=== PATIENT | male | born 2000 | race Caucasian/White ===

== ENCOUNTER 2023-11-17 18:56 | Emergency (ER) | payer SELFPAY ==
[2023-11-17 19:04] VITALS: BP 116/71; PULSE 89; TEMP 36.9; O2SAT 97; BMI 23.7
--- NOTE | 2023-11-17 19:34 | ED.GENADUL1 ---
HPI HPI - General Adult General Chief complaint: Upper Respiratory Infection Stated complaint: CONGESTION, CHEST/HEAD Time Seen by Provider: 11/17/23 19:29 Source: patient Mode of arrival: walk-in Limitations: no limitations History of Present Illness HPI narrative: 23-year-old male presents for a history that started today of sore throat and headache. His daughter is also being seen and she developed symptoms last night. The patient has had no vomiting or diarrhea or skin rash. Symptoms are continuous. Related Data Previous Rx's ?Medication ?Instructions ?Recorded ibuprofen 800 mg tablet 800 mg PO Q8H PRN pain #20 tabs 11/17/23 loratadine 5 mg-pseudoephedrine ER 1 tab PO Q12H PRN nasal congestion 11/17/23 120 mg tablet,extended #20 tabs release,12hr (Claritin-D 12 Hour) Allergies Allergy/AdvReac Type Severity Reaction Status Date / Time No Known Drug Allergies Allergy Verified 11/17/23 19:07 Opioid HPI Opioid Management Most Recent Opioid Data: No Data to Display Review of Systems ROS Narrative A ten point review of systems is negative except as noted above. Exam Narrative Exam Narrative: Nurses note and vital signs reviewed and patient is not hypoxic. General: The patient appears well and in no apparent distress. Patient is resting comfortably on cart. Skin: Warm, dry, no pallor noted. There is no rash noted. Head: Normocephalic, atraumatic Eye: Normal conjunctiva, no drainage Ears, Nose, Mouth, and Throat: oral mucosa is moist. Nares patent. No pharyngeal erythema or exudate Cardiovascular: Regular Rate and Rhythm Respiratory: Patient is in no distress, no accessory muscle use, lungs are clear to auscultation, no wheezing, rales or rhonchi Back: non-tender GI: Soft and nontender Musculoskeletal: The patient has no evidence of calf tenderness, no pitting edema, symmetrical pulses noted bilaterally Neurological: Awake and alert Psychiatric: Cooperative Constitutional Vital Signs, click to edit/add: Last Vital Signs Temp 98.4 F 11/17/23 19:04 Pulse 89 11/17/23 19:04 Resp 18 11/17/23 19:04 BP 116/71 11/17/23 19:04 Pulse Ox 97 11/17/23 19:04 O2 Del Method Room Air 11/17/23 19:04 Course Vital Signs Vital signs: Vital Signs Temperature 98.4 F 11/17/23 19:04 Pulse Rate 89 11/17/23 19:04 Respiratory Rate 18 11/17/23 19:04 Blood Pressure 116/71 11/17/23 19:04 Pulse Oximetry 97 11/17/23 19:04 Oxygen Delivery Method Room Air 11/17/23 19:04 Temperature 98.4 F 11/17/23 19:04 Pulse Rate 89 11/17/23 19:04 Respiratory Rate 18 11/17/23 19:04 Blood Pressure 116/71 11/17/23 19:04 Pulse Oximetry 97 11/17/23 19:04 Oxygen Delivery Method Room Air 11/17/23 19:04 Medical Decision Making MDM Narrative Medical decision making narrative: COVID, influenza, and strep test are all negative. My clinical impression is that he has a viral illness and he will be treated symptomatically. Treatment diagnosis and follow-up were discussed with the patient. Differential Diagnosis Differential Diagnosis: Strep throat, COVID, influenza, viral URI Lab Data Lab results reviewed: Yes I reviewed the patient's lab results Labs: Lab Results 11/17/23 Range/Units 19:15 Influenza Type A Ag Negative Influenza Type B Ag Negative SARS-CoV-2 Ag (CV2AG) Negative (NEGATIVE) Streptococcus Screen Negative Discharge Plan Discharge Stand Alone Forms: Portal Instructions Chief Complaint: Upper Respiratory Infection Clinical Impression: Viral URI Patient Disposition: Home, Self-Care Time of Disposition Decision: 20:37 Condition: Good Mode of Transportation: Private Vehicle Prescriptions / Home Meds: New ibuprofen 800 mg tablet 800 mg PO Q8H PRN (Reason: pain) Qty: 20 0RF Claritin-D 12 Hour 5-120 mg tablet extended release 12 hr 1 tab PO Q12H PRN (Reason: nasal congestion) Qty: 20 0RF Print Language: New Zealander Instructions: Upper Respiratory Infection (ED) Referrals: Physician,Non-Staff, MD [Primary Care Provider] - 1 week
[2023-11-17 19:48] LABS: Influenza Virus A Antigen Negative; Influenza Virus B Antigen Negative; Internal Control Within Normal Limits; SARS-CoV-2 Ag NEGATIVE (NEGATIVE); Strep A Antigen Screen Negative
[2023-11-17 20:54] VITALS: BP 118/76; PULSE 82; O2SAT 98
== END 2023-11-17 20:56 | disposition home or self-care (01) ==
PROVIDERS: Emergency Provider Emergency Medicine
DX: J06.9 Acute upper respiratory infection, unspecified (principal); Z20.822 Contact with and (suspected) exposure to COVID-19
CPT/HCPCS: 87070; 87804; 87811; 87880; 99283

== ENCOUNTER 2024-05-27 23:52 | Emergency (ER) | payer OTHER, SELFPAY ==
[2024-05-28 00:01] VITALS: BP 124/86; PULSE 67; TEMP 36.6; O2SAT 97; BMI 23.7
--- NOTE | 2024-05-28 00:06 | ECG_ITS ---
[facility] Test Date: 2024-05-27 Pat Name: MIGNON ANDINO Department: Room: - Gender: Male Works Manager: : 2000 Requested By: [id number] Order Number: [id number] Reading MD: MILAN GREENWOOD Measurements Intervals [place] Rate: 60 P: 9 HI: 126 QRS: 49 QRSD: 86 T: -7 QT: 368 QTc: 368 Interpretive Statements 1100 Sinus rhythm 1102 Sinus arrhythmia 4068 Nonspecific Twave abnormality - borderline Inf wall ischemia 9130 borderline ECG No previous ECG available for comparison Electronically Signed On 05-28-2024 6:50:43 EST by MILAN GREENWOOD
--- NOTE | 2024-05-28 00:07 | ED.CHESTPAI1 ---
HPI - Chest Pain General Chief Complaint: Chest Pain Stated Complaint: chest pain Time Seen by Provider: 05/28/24 00:06 Source: patient Mode of arrival: walk-in Limitations: no limitations History of Present Illness HPI narrative: Presented to the emergency department for evaluation of chest pain. Patient states for at least the last month or 2 he has been having chest pain. Patient states its across the entire chest, left, right, top and bottom. States has been coming and going for the last couple weeks if not a month or 2. States it feels like an aching sensation, moderate in intensity, worse when he is up doing stuff, or lifting things, better when he is sitting down at rest. Patient states he is not having any shortness of breath, nausea, vomiting, diaphoresis. His grandmother had MIs in her 40s, no first-degree relatives. States that he does smoke cigarettes. No other medical problems. Patient states that he went to [facility] on Sunday, they did a chest x-ray and an EKG without blood work. They told him everything was fine and sent him home. Patient states over the last couple days and has still persisted. No other complaints at this time Related Data Home Medications ?Medication ?Instructions ?Recorded ?Confirmed No Known Home Medications 05/28/24 05/28/24 Allergies Allergy/AdvReac Type Severity Reaction Status Date / Time No Known Drug Allergies Allergy Verified 11/17/23 19:07 Review of Systems ROS Narrative Negative unless otherwise stated in the HPI [facility] Social History Little interest or pleasure in doing things: not at all Feeling down, depressed, or hopeless: not at all Exam Narrative Exam Narrative: General: NAD, AAOx3, no distress Eyes: PERRL, EOMI Respiratory: respiratory effort normal, speaks in full sentences, no tripod position, no accessory muscle use. Lungs clear to auscultation without rhonchi, wheezes, rales Cardiac: Regular rate and rhythm, no edema, regular s1/s2, no m/g/r Abdomen: Soft, ND/NT. No evidence of fluid wave. No pulsatile masses on exam, rebound tenderness, Wu sign or pain over Mcburney's point. Constitutional Vital Signs, click to edit/add: Last Vital Signs Temp 97.8 F 05/28/24 00:01 Pulse 67 05/28/24 00:01 Resp 14 05/28/24 00:01 BP 124/86 05/28/24 00:01 Pulse Ox 97 05/28/24 00:01 O2 Del Method Room Air 05/28/24 00:01 Course Vital Signs Vital signs: Vital Signs Temperature 97.8 F 05/28/24 00:01 Pulse Rate 67 05/28/24 00:01 Respiratory Rate 14 05/28/24 00:01 Blood Pressure 124/86 05/28/24 00:01 Pulse Oximetry 97 05/28/24 00:01 Oxygen Delivery Method Room Air 05/28/24 00:01 Temperature 97.8 F 05/28/24 00:01 Pulse Rate 67 05/28/24 00:01 Respiratory Rate 14 05/28/24 00:01 Blood Pressure 124/86 05/28/24 00:01 Pulse Oximetry 97 05/28/24 00:01 Oxygen Delivery Method Room Air 05/28/24 00:01 MDM - Chest Pain MDM Narrative Medical decision making narrative: MDM Patient with history as above presented with chest pain. History obtained from patient. Patient was nontoxic, stable. Ambulatory. Exam as above. EKG reviewed. Labs reviewed. Reviewed external records. Differential diagnosis considered. Overall presentation is consistent with typical chest pain The patient has atypical chest pain as the patient's chest pain is not suggestive of pulmonary embolus, cardiac ischemia, aortic dissection, or other serious etiology. Given the extremely low risk of these diagnoses further testing and evaluation for these possibilities does not appear to be indicated at this time. The patient has been instructed to return if the symptoms worsen or change in any way. Advanced guidance has been given. Vss, pex is benign at this time. Pt to fu with pcp 1-2 days for reeval, rter should sx worsen, persist or become worrysome in any way. Pt expressed understanding and agreement with plan of care at this time. Will fu as planned. Pt stable for discharge. Medical Records Data Attestation: I reviewed the patient's medical records. Lab Data Labs: Lab Results 05/28/24 Range/Units 00:20 WBC 8.0 (4.0-11.0) 10^3/uL RBC 4.52 L (4.70-6.10) 10^6/uL Hgb 13.8 L (14.0-18.0) g/dL Hct 41.9 L (42.0-54.0) % MCV 92.7 (80.0-94.0) fL MCH 30.5 (25.9-34.0) pg MCHC 32.9 (29.9-35.2) g/dL RDW 13.3 (11.0-15.0) % Plt Count 276 (150-450) 10^3/uL MPV 10.3 (9.5-13.5) fL Neut % (Auto) 61.3 (43.0-75.0) % Lymph % (Auto) 31.5 (20.5-60.0) % [place] % (Auto) 5.8 (1.7-12.0) % Eos % (Auto) 0.7 L (0.9-7.0) % Baso % (Auto) 0.6 (0.2-2.0) % Neut # (Auto) 4.9 (1.4-6.5) 10^3/uL Lymph # (Auto) 2.5 (1.2-3.8) 10^3/uL [place] # (Auto) 0.5 (0.3-0.8) 10^3/uL Eos # (Auto) 0.1 (0.0-0.7) 10^3/uL Baso # (Auto) 0.1 (0.0-0.1) 10^3/uL Abs Immat Gran (auto) 0.01 (0.00-0.03) 10^3/uL Imm/Tot Granulo (auto) 0.1 (0.0-0.5) % Sodium 142 (136-145) mmol/L Potassium 3.5 (3.5-5.1) mmol/L Chloride 105 (98-107) mmol/L Carbon Dioxide 23.7 (21.0-32.0) mmol/L Anion Gap 16.8 BUN 8.0 (7.0-18.0) mg/dL Creatinine 0.71 (0.70-1.30) mg/dL Est GFR ( Amer) >60 (>=60 mL/min/1.73m^2) Est GFR (Non-Af Amer) >60 (>=60 mL/min/1.73m^2) BUN/Creatinine Ratio 11.3 Glucose 83 (74-106) mg/dL Calcium 9.4 (8.5-10.1) mg/dL Troponin I High Sens 5.0 (4.0-76.1) pg/mL ECG Data Attestation: I personally reviewed and interpreted this ECG as follows: Discharge Plan Discharge Chief Complaint: Chest Pain Clinical Impression: Atypical chest pain Patient Disposition: Home, Self-Care Time of Disposition Decision: 00:52 Condition: Good Prescriptions / Home Meds: No Action No Known Home Medications Print Language: Chinese Instructions: Noncardiac Chest Pain (ED) Additional Instructions: Follow-up with your PCP in the next 1 to 2 days. Return to the emergency department should symptoms worsen or become worrisome in any way. Referrals: Physician,Non-Staff, MD [Primary Care Provider] - 1 week
--- NOTE | 2024-05-28 00:08 | PC.NURSE ---
patient complains of chest pain onset 2 weeks ago, and rates it 7/10 sharp. this patient was doing nothing when this chest pain started, movement makes this chest pain wore and resting makes chest pain better
--- OUTSIDE RECORDS SUMMARY | 2024-05-28 00:15 | XMS_ITS | CCD ---
Author Organization [facility] Care Team Providers Care Wool Sacker Name Role Phone Unavailable Primary Care Provider Unavailabl e [facility] Primary Care Unavailable PAY, DR CROW Admitting Unavailable PAY, DR CROW Attending Unavailable MARKER, DR OLEA Consulting Unavailable [facility] Primary Care Unavailable FRANKI BAILEY Admitting Unavailable FRANKI BAILEY Attending Unavailable FRANKI BAILEY Consulting Unavailable IRIS BELLO Referring Unavailable RONALDO HOLLINS Attending Unavailable NO PCP, NO PCP Primary Care Unavailable NO PCP, NO PCP Primary Care Unavailable MARYURI NOEL Attending Unavailable [facility] Primary Care Unava ilable BERTO SEGURA Attending Unavailable NO PCP, NO PCP Primary Care Unavailable BERTO SEGURA Attending Unavailable Medications Current Medications Medication Drug Class(es) Dates Sig (Normalized) Sig (Original) ondansetron 4 mg disintegrating oral tablet (1 source) Serotonin-3 Receptor Antagonist Start: 06-14-2020 take 1 tablet by mouth three times daily as needed for nausea ondansetron (ZOFRAN-ODT) 4 MG disintegrating tablet Take 1 tablet by mouth 3 times daily as needed for Nausea or Vomiting 21 tablet 0 06/14/2020 Active Problems Active Problems Problem Classification Problem Date Documented Da te Episodic/Chronic Abdominal pain (2 sources) Unspecified abdominal pain; Translations: [Abdominal pain] Onset: 11-09-2023 Episodic Asthma (1 source) Unspecified asthma, uncomplicated; Translations: [UNSPECIFIED ASTHMA UNCOMPLICATED] Onset: 04-19-2022 Chronic Influenza (1 source) Influenza Onset: 08-26-2023 Nonspecific chest pain (2 sources) Chest pain, unspecified; Translations: [Chest pain] Onset: 05-26-2024 Episodic Other ear and sense organ disorders (3 sources) Otalgia, right ear; Translations: [OTALGIA RIGHT EAR] Onset: 05-15-2022 Episodic Other lower respiratory disease (1 source) Shortness of breath Onset: 05-26-2024 Episodic Other screening for suspected conditions (not mental disorders or infectious disease) (2 sources) Unspecified abnormal finding in specimens from other organs, systems and tissues; Translations: [Unspecified abnormal finding in specimens from other organs, systems and tissues] Onset: 08-21-2022 Episodic Other upper respiratory infections (1 source) Acute upper respiratory infection, unspecified; Translations: [ACUTE UP RESPIRATORY INFECTION UNS] Onset: 04-19-2022 Episodic Otitis media and related conditions (1 source) Otitis media, unspecified, right ear; Translations: [OTITIS MEDIA UNSPECIFIED RIGHT EAR] Onset: 05-16-2022 Episodic Residual codes; unclassified (2 sources) Family history of other specified conditions; Translations: [Family history of other specified conditions] Onset: 08-21-2022 Episodic Substance-related disorders (1 source) Nicotine dependence, cigarettes, uncomplicated; Translations: [NICOTINE DEPEND CIGARETTES UNCOMP] Onset: 05-16-2022 Chronic Unclassified (3 sources) COUGH, UNSPECIFIED; Translations: [COUGH, UNSPECIFIED] Onset: 04-19-2022 Unclassified (1 source) CONTACT W/AND (SUSP) EXPOS COVID-19; Translations: [CONTACT W/AND (SUSP) EXPOS COVID-19] Onset: 04-19-2022 Unclassified (1 source) ABDOMINAL PAIN, VOMITING Onset: 11-09-2023 Past or Other Problems Problem Classification Problem Date Documented Da te Episodic/Chronic Nausea and vomiting (3 sources) Nausea and vomiting; Translations: [Nausea with vomiting, unspecified] Onset: 11-09-2023 Episodic Unclassified (1 source) COUGH, UNSPECIFIED; Translations: [COUGH, UNSPECIFIED] Onset: 04-17-2022 Viral infection (1 source) Viral infection, unspecified; Translations: [Viral infection, unspecified] Onset: 08-26-2023 Episodic Results Test Name Value Interpretation Reference Range Facility XR CHEST 1 VWon 05-26-2024 XR CHEST 1 VW XR CHEST 1 VW Single view chest History:chest pain Difficulty breathing, shortness of breath Comparison: 04/28/2022 Findings: Single portable view of the chest. Stable cardiomediastinal silhouette. No new focal opacity, effusion or pneumothorax. Small bilateral cervical ribs are suggestive versus prominent transverse processes of C7. Impression: No definitive acute cardiopulmonary process. Finalized by Jose L Gray MD on 05/26/2024 3:58 AM Normal [facility] CBC AND AUTO DIFFon 03-17-20 24 ABSOLUTE BASOPHIL 0.1 X10E9/L Normal 0.0-0.2 [facility] Comment on above: Performed By: #### C ALVA PEREZ, 3040-3 #### [facility] ([id number]) [address] [place] [address] 78830 ABSOLUTE NEUTROPHIL 5.3 X10E9/L Normal 1.5-6.6 [facility] Comment on above: Performed By: #### Mendy PEREZ CMP, 3040-3 #### [facility] ([id number]) [address] [place] [address] 53535 Basophils/100 WBC (Bld) 1.2 % Normal [facility] Comment on above: Performed By: #### Mendy PEREZ CMP, 0-3 #### [facility] ([id number]) [address] [place] [address] 28219 Eosinophils (Bld) [#/Vol] 0.1 10*3/uL Normal 0.0-0.4 [facility] Comment on above: Performed By: #### Mendy PEREZ CMP, 3040-3 #### [facility] ([id number]) [address] [place] [address] 88485 Eosinophils/100 WBC (Bld) 1.7 % Normal [facility] Comment on above: Performed By: #### Mendy PEREZ CMP, 3040-3 #### [facility] ([id number]) [address] [place] [address] 93668 Erythrocyte distribution width (RBC) [Ratio] 14.0 % Normal 11.5-15.0 [facility] Comment on above: Performed By: #### Mendy PEREZ CMP, 3039-09 #### [facility] ([id number]) [address] [place] [address] 93615 Hematocrit (Bld) [Volume fraction] 42.2 % Normal 39-49 [facility] Comment on above: Performed By: #### Mendy PEREZ CMP, 3039-09 #### [facility] ([id number]) [address] [place] [address] 65057 Hemoglobin (Bld) [Mass/Vol] 14.3 g/dL Normal 13.0-17.0 [facility] Comment on above: Performed By: #### Mendy PEREZ CMP, 3039-09 #### [facility] ([id number]) [address] [place] [address] 26378 Lymphocytes (Bld) [#/Vol] 1.9 10*3/uL Normal 1.0-3.5 [facility] Comment on above: Performed By: #### Mendy PEREZ CMP, 3039-09 #### [facility] ([id number]) [address] [place] [address] 13309 Lymphocytes/100 WBC (Bld) 23.8 % Normal [facility] Comment on above: Performed By: #### Mendy PEREZ CMP, 3039-09 #### [facility] ([id number]) [address] [place] [address] 56910 MCH (RBC) [Entitic mass] 31.5 pg Normal 27-34 [facility] Comment on above: Performed By: #### Mendy PEREZ CMP, 3039-09 #### [facility] ([id number]) [address] [place] [address] 85389 MCHC (RBC) [Mass/Vol] 33.8 g/dL Normal 32-36 [facility] Comment on above: Performed By: #### Mendy PEREZ CMP, 3 #### [facility] ([id number]) [address] [place] [address] 88825 MCV (RBC) [Entitic vol] 93 fL Normal 80-100 [facility] Comment on above: Performed By: #### Mendy PEREZ CMP, 3040-3 #### [facility] ([id number]) [address] [place] [address] 79024 Monocytes (Bld) [#/Vol] 0.5 10*3/uL Normal 0-0.9 [facility] Comment on above: Performed By: #### Mendy PEREZ CMP, 3039-09 #### [facility] ([id number]) [address] [place] [address] 74009 Monocytes/100 WBC (Bld) 6.3 % Normal [facility] Comment on above: Performed By: #### Mendy PEREZ CMP, 3 #### [facility] ([id number]) [address] [place] [address] 70811 Neutrophils/100 WBC (Bld) 67.0 % Normal [facility] Comment on above: Performed By: #### Mendy PEREZ CMP, 3 #### [facility] ([id number]) [address] [place] [address] 42828 Platelet mean volume (Bld) [Entitic vol] 8.9 fL Normal 7-12 [facility] Comment on above: Performed By: #### Mendy PEREZ CMP, 3039-09 #### [facility] ([id number]) [address] [place] [address] 32588 Platelets (Bld) [#/Vol] 334 10*3/uL Normal 150-450 [facility] Comment on above: Performed By: #### Mendy PEREZ CMP, 3039-3 #### [facility] ([id number]) [address] [place] [address] 48640 RBC COUNT 4.53 X10E12/L Normal 4.10-5.70 [facility] Comment on above: Performed By: #### C BCA, CMP, 3040-3 #### [facility] ([id number]) [address] [place] [address] 84585 WBC (Bld) [#/Vol] 7.9 10*3/uL Normal 4.0-11.0 [facility] Comment on above: Performed By: #### C BCA, CMP, 3039-3 #### [facility] ([id number]) [address] [place] [address] 69692 COMPREHENSIVE METABOLIC PANE Piyush 03-17-2024 Albumin [Mass/Vol] 4.3 g/dL Normal 3.2-5.3 [facility] Comment on above: Performed By: #### C BCA, CMP, 3039-3 #### [facility] ([id number]) [address] [place] [address] 37010 ALP [Catalytic activity/Vol] 66 U/L Normal 39-130 [facility] Comment on above: Performed By: #### C BCA, CMP, 3039-3 #### [facility] ([id number]) [address] [place] [address] 39011 ALT [Catalytic activity/Vol] 15 U/L Normal 0-40 [facility] Comment on above: Performed By: #### C BCA, CMP, 0-3 #### [facility] ([id number]) [address] [place] [address] 08967 Anion gap [Moles/Vol] 6 mmol/L Normal 5-15 [facility] Comment on above: Performed By: #### C BCA, CMP, 0-3 #### [facility] ([id number]) [address] [place] [address] 91156 AST [Catalytic activity/Vol] 17 U/L Normal 0-41 [facility] Comment on above: Performed By: #### C BCA, CMP, 0-3 #### [facility] ([id number]) [address] [place] [address] 44389 Bilirubin [Mass/Vol] 0.5 mg/dL Normal 0.3-1.2 [facility] Comment on above: Performed By: #### C ALVA PEREZ, 3039-3 #### [facility] ([id number]) [address] [place] [address] 62574 Calcium [Mass/Vol] 8.9 mg/dL Normal 8.5-10.5 [facility] Comment on above: Performed By: #### C ALVA PEREZ, 3039-3 #### [facility] ([id number]) [address] [place] [address] 43263 Chloride [Moles/Vol] 108 mmol/L Normal 98-109 [facility] Comment on above: Performed By: #### C ALVA PEREZ, 3039-3 #### [facility] ([id number]) [address] [place] [address] 22178 CO2 [Moles/Vol] 26 mmol/L Normal 22-32 [facility] Comment on above: Performed By: #### C ALVA PEREZ, 3039-3 #### [facility] ([id number]) [address] [place] [address] 35123 Creatinine [Mass/Vol] 0.74 mg/dL Normal 0.70-1.20 [facility] Comment on above: Result Comment: METH OD TRACEABLE TO IDMS STANDARD Performed By: #### C ALVA PEREZ, 3039-3 #### [facility] ([id number]) [address] [place] [address] 24209 eGFR (CKD-EPI) NON-RACE DEPENDENT >90 Normal >59 [facility] Comment on above: Result Comment: Reported eGFR is based on the CKD-EPI 2020 equation that does not use a race coefficient. Performed By: #### C ALVA PEREZ, 3039-3 #### [facility] ([id number]) [address] [place] [address] 05801 Glucose [Mass/Vol] 115 mg/dL High 65-99 [facility] Comment on above: Performed By: #### C ANA, CMP, 3039-3 #### [facility] ([id number]) [address] [place] [address] 68315 Potassium [Moles/Vol] 3.3 mmol/L Low 3.5-5.0 [facility] Comment on above: Performed By: #### C ANA CMP, 3 #### [facility] ([id number]) [address] [place] [address] 65745 Protein [Mass/Vol] 7.6 g/dL Normal 6.0-8.0 [facility] Comment on above: Performed By: #### Mendy PEREZ, [facility], 3 #### [facility] ([id number]) [address] [place] [address] 47393 Sodium [Moles/Vol] 140 mmol/L Normal 134-146 [facility] Comment on above: Performed By: #### Mendy PEREZ, CMP, 3039-3 #### [facility] ([id number]) [address] [place] [address] 37098 Urea nitrogen [Mass/Vol] 11 mg/dL Normal 5-23 [facility] Comment on above: Performed By: #### Mendy PEREZ, CMP, 3039-3 #### [facility] ([id number]) [address] [place] [address] 77812 LIPASEon 03-17-2024 Lipase [Catalytic activity/Vol] 43 U/L High 17-40 [facility] Comment on above: Performed By: #### Mendy PEREZ, CMP, 3039-3 #### [facility] ([id number]) [address] [place], [place] [address], [place] [address] SARS/FLU A+B/RSV by NAAT/Mol ecularon 11-09-2023 SARS/FLU A+B/RSV by NAAT/Molecular FLU A PCR Negative (qualifier value) FLU B PCR Negative (qualifier value) RSV by PCR Negative (qualifier value) SARS CoV 2 Not detected (qualifier value) NOTE The Xpert Xpress SARS-CoV-2/Flu/RSV Plus test is a rapid, multiplexed real-time RT-PCR test intended for the simultaneous qualitative detection and differentiation of SARS-CoV-2, influenza A, influenza B and respiratory syncytial virus (RSV) viral RNA from individuals suspected of respiratory viral infection consistent with COVID-19 by their healthcare provider. This test has not been validated in asymptomatic patients. The Xpert Xpress SARS-CoV-2 test is intended for use by qualified and trained operators who are performing tests using either No [employer] Just Vapor DX or [employer] systems and is limited to laboratories that meet the CLIA requirements to perform high and moderate complexity tests. The Xpert Xpress SARS-CoV-2/Flu/RSV Plus is only for use under the Food and Drug Administration's Emergency Use Authorization. Results are for the simultaneous detection and differentiation of SARS-CoV-2, influenza A, influenza B and RSV nucleic acids in clinical specimens. SARS-CoV-2, influenza A, influenza B and RSV RNA identified by this test are generally detectable in upper respiratory samples during the acute phase of infection. Positive results are indicative of the presence of the identified virus, but do not rule out bacterial infection or co-infection with other pathogens not detected by this test. Clinical correlation with patient history and other diagnostic information is necessary to determine patient infection status. The agent detected may not be the definite cause of disease. Negative results do not preclude SARS-CoV-2, influenza A, influenza B and RSV infection and should not be used as the sole basis for treatment or other patient management decisions. Negative results must be combined with clinical observations, patient history and epidemiological information. An Invalid result may occur with specimen-associated inhibition unable to be resolved with specimen repeat. Fact Sheet for Healthcare Providers: https://www.fda.gov/me becca/337265/download Fact Sheet for Patients: https://www.fda.gov/me becca/509109/download [facility] Comment on above: Performed By: #### C OVFLR #### [facility] ([id number]) [address] [place], [place] [address] SARS/FLU A+B/RSV by NAAT/Mol ecularon 08-26-2023 SARS/FLU A+B/RSV by NAAT/Molecular FLU A PCR Negative (qualifier value) FLU B PCR Negative (qualifier value) RSV by PCR Negative (qualifier value) SARS CoV 2 Detected (qualifier value) NOTE The Xpert Xpress SARS-CoV-2/Flu/RSV Plus test is a rapid, multiplexed real-time RT-PCR test intended for the simultaneous qualitative detection and differentiation of SARS-CoV-2, influenza A, influenza B and respiratory syncytial virus (RSV) viral RNA from individuals suspected of respiratory viral infection consistent with COVID-19 by their healthcare provider. This test has not been validated in asymptomatic patients. The Xpert Xpress SARS-CoV-2 test is intended for use by qualified and trained operators who are performing tests using either No [employer] Just Vapor DX or [employer] systems and is limited to laboratories that meet the CLIA requirements to perform high and moderate complexity tests. The Xpert Xpress SARS-CoV-2/Flu/RSV Plus is only for use under the Food and Drug Administration's Emergency Use Authorization. Results are for the simultaneous detection and differentiation of SARS-CoV-2, influenza A, influenza B and RSV nucleic acids in clinical specimens. SARS-CoV-2, influenza A, influenza B and RSV RNA identified by this test are generally detectable in upper respiratory samples during the acute phase of infection. Positive results are indicative of the presence of the identified virus, but do not rule out bacterial infection or co-infection with other pathogens not detected by this test. Clinical correlation with patient history and other diagnostic information is necessary to determine patient infection status. The agent detected may not be the definite cause of disease. Negative results do not preclude SARS-CoV-2, influenza A, influenza B and RSV infection and should not be used as the sole basis for treatment or other patient management decisions. Negative results must be combined with clinical observations, patient history and epidemiological information. An Invalid result may occur with specimen-associated inhibition unable to be resolved with specimen repeat. Fact Sheet for Healthcare Providers: https://www.fda.gov/me becca/932247/download Fact Sheet for Patients: https://www.fda.gov/me becca/812569/download [facility] Comment on above: Performed By: #### C OVFLR #### [facility] ([id number]) [address] [place] [address] Antibody Screenon 08-21-2022 Antibody screen Antibody Screen NOT TESTED Antigen Type,Patient Positive for E Antigen Normal [facility] Comment on above: Performed By: #### A BSN #### [facility] [address] [place], [place] [id number] Fulfillment Representative: Ty Richard MD Covid-19 PCR ([facility])on 03-24 SARS-CoV-2 (COVID-19) RNA TOMI+probe Ql (Unsp spec) Not detected Normal NOT DETECTED [facility] Comment on above: Result Comment: This test is not yet approved or cleared by the [place] FDA. When there are no FDA-approved or cleared tests available, and other criteria are met, FDA can make tests available under an emergency access mechanism called an Emergency Use Authorization (EUA). The EUA for this test is supported by the Mirror Finishing Machine Operator of Health and Human Service's (HHS's) declaration that circumstances exist to justify the emergency use of in vitro diagnostics for the detection and/or diagnosis of the virus that causes COVID-19. This EUA will remain in effect (meaning this test can be used) for the duration of the COVID-19 declaration justifying emergency of IVDs, unless it is terminated or revoked by FDA (after which the test may no longer be used). When diagnostic testing is negative, the possibility of a false negative should be considered in the context of a patient's recent exposures and the presence of clinical signs and symptoms consistent with SARS-CoV-2. Performed By: #### C VDTBH #### [facility] [address] [address] [address] Yovany Fiore UOBL-OqV-8nd 06-15-2020 SARS-CoV-2 Not Detected Normal NOTDET [facility] Comment on above: Result Comment: The specimen is NEGATIVE for SARS-CoV-2, the novel coronavirus associated with COVID-19. A negative result does not rule out COVID-19. This test has been authorized by the FDA under an Emergency Use Authorization (EUA) for use by authorized laboratories. [employer] SARS-CoV-2 Reagents for [employer] are designed to detect the virus that causes COVID-19 in patients with signs and symptoms of infection who are suspected of COVID-19. An individual without symptoms of COVID-19 and who is not shedding SARS-CoV-2 virus would expect to have a negative (not detected) result in this assay. Fact sheet for Healthcare Providers: https://www.fda.gov/media/781092/download Fact sheet for Patients: https://www.fda.gov/media/881140/download METHODOLOGY: RT-PCR Performed By: #### C OVID #### [address] [address] Fulfillment Representative: Ty Richard MD [address] [place] [phone] Fulfillment Representative: Ac Bauer MD SARS-CoV-2,Rapid [facility] Comment on above: Performed By: #### C OVID #### [address] [address] Fulfillment Representative: Ty Richard MD [address] [place] [phone] Fulfillment Representative: Ac Bauer MD SARS-CoV-2 [facility] Comment on above: Performed By: #### C OVID #### [address] [address] Fulfillment Representative: Ty Richard MD [address] [place] [phone] Fulfillment Representative: Ac Bauer MD CBC Auto Differentialon 11-2 -2020 Basophils (Bld) [#/Vol] 0.06 10*3/uL [place], [place] Basophils/100 WBC (Bld) 1 % 0 - 2 % [place] Differential Type NOT REPORTED [place] Eosinophils (Bld) [#/Vol] 0.09 10*3/uL [place] Eosinophils/100 WBC (Bld) 1 % 1 - 4 % [place] Erythrocyte distribution width (RBC) [Ratio] 13.6 % 11.8 - 14.4 % [place] Hematocrit (Bld) [Volume fraction] 47.9 % 40.7 - 50.3 % [place] Hemoglobin (Bld) [Mass/Vol] 15.6 g/dL 13 - 17 g/dL [place] Immature granulocytes (Bld) [#/Vol] 0 % 0 [place] Immature granulocytes (Bld) [#/Vol] 0.05 10*3/uL [place] Interpretation and review of laboratory results Abnormal [place] Lymphocytes (Bld) [#/Vol] 1.77 10*3/uL [place] Lymphocytes/100 WBC (Bld) 14 % Low 24 - 43 % [place] MCH (RBC) [Entitic mass] 29.8 pg 25.2 - 33.5 pg [place] MCHC (RBC) [Mass/Vol] 32.6 g/dL 28.4 - 34.8 g/dL [place] MCV (RBC) [Entitic vol] 91.4 fL 82.6 - 102.9 fL [place] Monocytes (Bld) [#/Vol] 0.64 10*3/uL [place] Monocytes/100 WBC (Bld) 5 % 3 - 12 % [place] Platelet mean volume (Bld) [Entitic vol] 9.9 fL 8.1 - 13.5 fL [place] Platelets (Bld) [#/Vol] NOT REPORTED [place] Platelets (Bld) [#/Vol] 337 10*3/uL [place] RBC (Bld) [#/Vol] 5.24 10*6/uL 4.21 - 5.7 7 m/uL [place] RBC morphology finding Nom (Bld) NOT REPORTED [place] Segmented neutrophils/100 WBC (Bld) 79 % High 36 - 65 % [place] Segs Absolute 9.87 [place] WBC (Bld) [#/Vol] 12.5 10*3/uL [place] WBC (Bld) [#/Vol] 0.0 10*3/uL 0.0 per 10 0 WBC [place] WBC Morphology NOT REPORTED [place] CBC with Diffon 06-14-2020 Abs. Basophil 0.06 k/uL Normal 0.00-0.20 [facility] Comment on above: Performed By: #### C P, CDP, LIP #### [address] [place] [address] Fulfillment Representative: Ac Bauer MD Abs.Imm.Granulocyte 0.05 k/uL Normal 0.00-0.30 [facility] Comment on above: Performed By: #### C P, CDP, LIP #### [address] [place] [address] Fulfillment Representative: Ac Bauer MD Abs.Neutrophil (Seg) 9.87 k/uL High 1.50-8.10 [facility] Comment on above: Performed By: #### C P, CDP, LIP #### [address] [place] [address] Fulfillment Representative: Ac Bauer MD Basophils/100 WBC (Bld) 1 % Normal 0-2 [facility] Comment on above: Performed By: #### C P, CDP, LIP #### [address] [place] [address] Fulfillment Representative: Ac Bauer MD Eosinophils (Bld) [#/Vol] 0.09 10*3/uL Normal 0.00-0.44 [facility] Comment on above: Performed By: #### C P, CDP, LIP #### [facility] [address] [place], [facility] Fulfillment Representative: Ac Bauer MD Eosinophils/100 WBC (Bld) 1 % Normal 1-4 [facility] Comment on above: Performed By: #### C P, CDP, LIP #### [facility] [address] [place] [address] Fulfillment Representative: Ac Bauer MD Erythrocyte distribution width (RBC) [Ratio] 13.6 % Normal 11.8-14.4 [facility] Comment on above: Performed By: #### C P, CDP, LIP #### [address] [place] [address] Fulfillment Representative: Ac Bauer MD Hematocrit (Bld) [Volume fraction] 47.9 % Normal 40.7-50.3 [facility] Comment on above: Performed By: #### C P, CDP, LIP #### [address] [place] [address] Fulfillment Representative: cA Bauer MD Hemoglobin (Bld) [Mass/Vol] 15.6 g/dL Normal 13.0-17.0 [facility] Comment on above: Performed By: #### C P, CDP, LIP #### [address] [place] [address] Fulfillment Representative: Ac Bauer MD Immature granulocytes (Bld) [#/Vol] 0 % Normal 0 [facility] Comment on above: Performed By: #### C P, CDP, LIP #### [address] [place] [id number] Fulfillment Representative: Ac Bauer MD Lymphocytes (Bld) [#/Vol] 1.77 10*3/uL Normal 1.10-3.70 [facility] Comment on above: Performed By: #### C P, CDP, LIP #### [address] [place] [id number] Fulfillment Representative: Ac Bauer MD Lymphocytes/100 WBC (Bld) 14 % Low 24-43 [facility] Comment on above: Performed By: #### C P, CDP, LIP #### [facility] [address] [place] [address] Fulfillment Representative: Ac Bauer MD MCH (RBC) [Entitic mass] 29.8 pg Normal 25.2-33.5 [facility] Comment on above: Performed By: #### C P, CDP, LIP #### [facility] [address] [place] [address] Fulfillment Representative: Ac Bauer MD MCHC (RBC) [Mass/Vol] 32.6 g/dL Normal 28.4-34.8 [facility] Comment on above: Performed By: #### C P, CDP, LIP #### [address] [place] [address] Fulfillment Representative: Ac Bauer MD MCV (RBC) [Entitic vol] 91.4 fL Normal 82.6-102.9 [facility] Comment on above: Performed By: #### C P, CDP, LIP #### [address] [place] [address] Fulfillment Representative: Ac Bauer MD Monocytes (Bld) [#/Vol] 0.64 10*3/uL Normal 0.10-1.20 [facility] Comment on above: Performed By: #### C P, CDP, LIP #### [facility] [address] [place], [place] [id number] Fulfillment Representative: Ac Bauer MD Monocytes/100 WBC (Bld) 5 % Normal 3-12 [facility] Comment on above: Performed By: #### C P, CDP, LIP #### [facility] [address] [place] [address] Fulfillment Representative: Ac Bauer MD Neutrophil (Seg) 79 % High 36-65 [facility] Comment on above: Performed By: #### C P, CDP, LIP #### [facility] [address] [place], [place] [address] Fulfillment Representative: Ac Bauer MD NRBC Automated 0.0 per 100 WBC Normal 0.0 [facility] Comment on above: Performed By: #### C P, CDP, LIP #### [facility] [address] [place], [place] [address] Fulfillment Representative: Ac Bauer MD Platelet mean volume (Bld) [Entitic vol] 9.9 fL Normal 8.1-13.5 [facility] Comment on above: Performed By: #### C P, CDP, LIP #### [facility] [address] [place], [place] [address] Fulfillment Representative: Ac Bauer MD Platelets (Bld) [#/Vol] 337 10*3/uL Normal 138-453 [facility] Comment on above: Performed By: #### C P, CDP, LIP #### [facility] [address] [place], [place] [address] Fulfillment Representative: Ac Bauer MD RBC (Bld) [#/Vol] 5.24 10*6/uL Normal 4.21-5.77 [facility] Comment on above: Performed By: #### C P, CDP, LIP #### [facility] [address] [place], [place] [address] Fulfillment Representative: Ac Bauer MD WBC (Bld) [#/Vol] 12.5 10*3/uL High 3.5-11.3 [facility] Comment on above: Performed By: #### C P, CDP, LIP #### [facility] [address] [place], [place] [address] Fulfillment Representative: Ac Bauer MD Auto Diff Performed NOT REPORTED Normal [facility] Comment on above: Performed By: #### C P, CDP, LIP #### [facility] [address] [place], [place] [phone] Fulfillment Representative: Ac Bauer MD Platelets (Bld) [#/Vol] NOT REPORTED Normal [facility] Comment on above: Performed By: #### C P, CDP, LIP #### [facility] [address] [place], [place] [phone] Fulfillment Representative: Ac Bauer MD RBC morphology finding Nom (Bld) NOT REPORTED Normal [facility] Comment on above: Performed By: #### C P, CDP, LIP #### [facility] [address] [place] [address] Fulfillment Representative: Ac Bauer MD WBC Morphology NOT REPORTED Normal [facility] Comment on above: Performed By: #### C P, CDP, LIP #### [facility] [address] [place], [place] [id number] Fulfillment Representative: Ac Bauer MD Comp Metabolic Profon 2019 (cont.) Normal [facility] Comment on above: Result Comment: Aver age GFR for 20-29 years old: 116 mL/min/1.73sq m Chronic Kidney Disease: <60 mL/min/1.73sq m Kidney failure: <15 mL/min/1.73sq m eGFR calculated using average adult body mass. Additional eGFR calculator available at: http://www.Codota.Hactus/multiple_crcl_2011.htm Performed By: #### C P, CDP, LIP #### [facility] [address] [place] [address] Fulfillment Representative: Ac Bauer MD Albumin [Mass/Vol] 4.5 g/dL Normal 3.5-5.2 [facility] Comment on above: Performed By: #### C P, CDP, LIP #### [facility] [address] [place] [address] Fulfillment Representative: Ac Bauer MD Albumin/Globulin [Mass ratio] 1.4 {ratio} Normal 1.0-2.5 [facility] Comment on above: Performed By: #### C P, CDP, LIP #### [facility] [address] [place] [address] Fulfillment Representative: Ac Bauer MD Alkaline Phos 109 U/L Normal 40-129 [facility] Comment on above: Performed By: #### C P, CDP, LIP #### [facility] [address] [place], [place] [id number] Fulfillment Representative: Ac Bauer MD ALT [Catalytic activity/Vol] 44 U/L High 5-41 [facility] Comment on above: Performed By: #### C P, CDP, LIP #### [facility] [address] [place], [place] [address] Fulfillment Representative: Ac Bauer MD Anion gap [Moles/Vol] 9 mmol/L Normal 9-17 [facility] Comment on above: Performed By: #### C P, CDP, LIP #### [facility] [address] [place], [place] [id number] Fulfillment Representative: Ac Bauer MD AST [Catalytic activity/Vol] 28 U/L Normal <40 [facility] Comment on above: Performed By: #### C P, CDP, LIP #### [facility] [address] [place], [place] [id number] Fulfillment Representative: Ac Bauer MD Bilirubin Ql (U) 0.67 mg/dL Normal 0.3-1.2 [facility] Comment on above: Performed By: #### C P, CDP, LIP #### [facility] [address] [place] [address] Fulfillment Representative: Ac Bauer MD BUN/CRE Ratio 17 Normal 9-20 [facility] Comment on above: Performed By: #### C P, CDP, LIP #### [facility] [address] [place], [place] [phone] Fulfillment Representative: Ac Bauer MD Calcium [Mass/Vol] 9.4 mg/dL Normal 8.6-10.4 [facility] Comment on above: Performed By: #### C P, CDP, LIP #### [facility] [address] [place] [address] Fulfillment Representative: Ac Bauer MD Chloride [Moles/Vol] 103 mmol/L Normal 98-107 [facility] Comment on above: Performed By: #### C P, CDP, LIP #### [facility] [address] [place] [address] Fulfillment Representative: Ac Bauer MD CO2 [Moles/Vol] 25 mmol/L Normal 20-31 [facility] Comment on above: Performed By: #### C P, CDP, LIP #### [facility] [address] [place] [address] Fulfillment Representative: Ac Bauer MD Creatinine [Mass/Vol] 0.60 mg/dL Low 0.70-1.20 [facility] Comment on above: Performed By: #### C P, CDP, LIP #### [facility] [address] [place], [place] [phone] Fulfillment Representative: Ac Bauer MD GFR, Amer >60 Normal >60 [facility] Comment on above: Performed By: #### C P, CDP, LIP #### [facility] [address] [place] [address] Fulfillment Representative: Ac Bauer MD GFR,non Amer >60 Normal >60 [facility] Comment on above: Performed By: #### C P, CDP, LIP #### [facility] [address] [place] [address] Fulfillment Representative: Ac Bauer MD Glucose [Mass/Vol] 97 mg/dL Normal 70-99 [facility] Comment on above: Performed By: #### C P, CDP, LIP #### [facility] [address] [place], [place] [address] Fulfillment Representative: Ac Bauer MD Potassium [Moles/Vol] 4.0 mmol/L Normal 3.7-5.3 [facility] Comment on above: Performed By: #### C P, CDP, LIP #### [facility] [address] [place], [place] [id number] Fulfillment Representative: Ac Bauer MD Protein [Mass/Vol] 7.7 g/dL Normal 6.4-8.3 [facility] Comment on above: Performed By: #### C P, CDP, LIP #### [facility] [address] [place], [place] [id number] Fulfillment Representative: Ac Bauer MD Sodium [Moles/Vol] 137 mmol/L Normal 135-144 [facility] Comment on above: Performed By: #### C P, CDP, LIP #### [facility] [address] [place] [address] Fulfillment Representative: Ac Bauer MD Staging: Normal [facility] Comment on above: Result Comment: Stag e 1: Some kidney damage normal GFR Stage 2: Mild kidney damage GFR 60-89 Stage 3: Moderate kidney damage GFR 30-59 Stage 4: Severe kidney damage GFR 15-29 Stage 5: Severe kidney damage GFR <15 ESRD - chronic treatment by dialysis or transplant Performed By: #### C P, CDP, LIP #### [facility] [address] [place], [place] [phone] Fulfillment Representative: Ac Bauer MD Urea nitrogen [Mass/Vol] 10 mg/dL Normal 6-20 [facility] Comment on above: Performed By: #### C P, CDP, LIP #### [facility] [address] [place] [address] Fulfillment Representative: Ac Bauer MD [facility] 06-14-2020 Albumin [Mass/Vol] 4.5 g/dL 3.5 - 5.2 g/dL [place], [place] Albumin/Globulin [Mass ratio] 1.4 {ratio} [place], [place] ALP [Catalytic activity/Vol] 109 U/L 40 - 129 U/L [place] ALT [Catalytic activity/Vol] 44 U/L High 5 - 41 U/L [place] Anion gap [Moles/Vol] 9 mmol/L 9 - 17 mmol/L [place] AST [Catalytic activity/Vol] 28 U/L <40 [place] Bilirubin Ql (U) 0.67 mg/dL 0.3 - 1.2 mg/dL [place] Bun/Cre Ratio 17 [place] Calcium [Mass/Vol] 9.4 mg/dL 8.6 - 10. 4 mg/dL [place] Chloride [Moles/Vol] 103 mmol/L 98 - 10 7 mmol/L [place] CO2 [Moles/Vol] 25 mmol/L 20 - 31 mmol/L [place] Creatinine [Mass/Vol] 0.6 mg/dL Low 0.7 - 1.2 mg/dL [place] GFR >60 >60 mL/min [place] GFR Non- >60 >60 mL/min [place] Glucose [Mass/Vol] 97 mg/dL 70 - 99 mg/dL [place] Interpretation and review of laboratory results Abnormal [place] Potassium [Moles/Vol] 4.0 mmol/L 3.7 - 5.3 mmol/L [place] Protein [Mass/Vol] 7.7 g/dL 6.4 - 8.3 g/dL [place] Sodium [Moles/Vol] 137 mmol/L 135 - 144 mmol/L [place] Urea nitrogen [Mass/Vol] 10 mg/dL 6 - 20 mg/dL [place] Lactic Acidon 06-14-2020 Lactate [Moles/Vol] 0.8 mmol/L Normal 0.5-2.2 [facility] Comment on above: Performed By: #### L ACTIC #### [facility] [address] [place] [address] Fulfillment Representative: Ac Bauer MD Lactate [Moles/Vol] NOT REPORTED Normal 0.7-2.1 [facility] Comment on above: Performed By: #### L ACTIC #### [facility] [address] [place], [place] [address] Fulfillment Representative: Ac Bauer MD Lactic Acid, Plasmaon 2019 Lactate [Moles/Vol] 0.8 mmol/L 0.5 - 2. 2 mmol/L [place] Lactic Acid, Whole Blood NOT REPORTED 0.7 - 2.1 mmol/L [place] Lipaseon 06-14-2020 Lipase [Catalytic activity/Vol] 18 U/L Normal 13-60 [facility] Comment on above: Performed By: #### C P, CDP, LIP #### [facility] [address] [place] [address] Fulfillment Representative: Ac Bauer MD Lipase [Catalytic activity/Vol] 18 U/L 13 - 60 U/L [place] Metabolic Panelon 06-14-2020 GFR/1.73 sq M predicted among non-blacks MDRD (S/P/Bld) [Vol rate/Area] [place] Comment on above: Stage 1: Some kidney damage normal GFR Stage 2: Mild kidney damage GFR 60-89 Stage 3: Moderate kidney damage GFR 30-59 Stage 4: Severe kidney damage GFR 15-29 Stage 5: Severe kidney damage GFR <15 ESRD - chronic treatment by dialysis or transplant Average GFR for 20-2 9 years old: 116 mL/min/1.73sq m Chronic Kidney Disease: <60 mL/min/1.73sq m Kidney failure: <15 mL/min/1.73sq m eGFR calculated using average adult body mass. Additional eGFR calculator available at: http://www.Codota.Hactus/multiple_crcl_2012.htm [id number] 06-14-2020 SARS-CoV-2 Source .NASOPHARYNGEAL SWAB Normal [facility] Comment on above: Performed By: #### C OVID #### [facility] [employer] [address] [place], [place] [id number] Fulfillment Representative: Ty Richard MD [facility] [address] [place] [address] Fulfillment Representative: Ac Bauer MD Vital Signs Date Time Vital Sign Value Performing Clinician Jacquei jana 06-14-2020 17:45-0500 BP Diastolic 72 mm[Hg] [place], [place] 06-14-2020 17:45-0500 BP Systolic 136 mm[Hg] [place] 06-14-2020 17:45-0500 Pulse (Heart Rate) 75 /min [place] 06-14-2020 15:25-0500 Body Temperature 98.29 [degF] [place] 06-14-2020 15:25-0500 Body weight 97.52 kg [place] 06-14-2020 15:25-0500 Pulse Oximetry 99 % [place] 06-14-2020 15:25-0500 Respiratory Rate 18 /min [place] Encounters Encounter Date Encounter Type Care Provider Facility Start: 05-26-2024 End: 05-26-2024 Emergency department patient visit NO PCP NO PCP [facility] Start: 03-17-2024 End: 03-17-2024 Emergency department patient visit NO PCP NO PCP [facility] Start: 11-09-2023 End: 11-09-2023 Emergency department patient visit RONALDO BANNERDIMITRIOS [facility] Start: 08-26-2023 End: 08-26-2023 Emergency department patient visit [facility] Start: 08-21-2022 End: 08-22-2022 ambulatory IRIS BELLO [facility] Start: 05-15-2022 End: 05-15-2022 [facility] Facility:[facility] Start: 04-17-2022 End: 04-17-2022 [facility] Facility:[facility] Start: 06-14-2020 Emergency department patient visit [facility] Start: 06-14-2020 End: 06-14-2020 Emergency department patient visit [facility] ED Comment on above: Nausea and vomiting, intractability of vomiting not specified, unspecified vomiting type (Primary Dx) Procedures Date Procedure Procedure Detail Performing Clinician Start: 06-14-2020 Assay of lactate Start: 06-14-2020 Assay of lipase Start: 06-14-2020 Blood count complete auto&auto difrntl wbc Start: 06-14-2020 Comprehensive metabo lic panel Start: 06-14-2020 INSERT PERIPHERAL IV Start: 06-14-2020 Urnls dip stick/tabl et rgnt auto w/o microscopy Start: 06-14-2020 Assay of lactate Yury Bennett Work Phone: Start: 06-14-2020 Assay of lipase Ac Sabrina Work Phone: Start: 06-14-2020 Blood count complete auto&auto difrntl wbc Ac Carsonsanthosh Work Phone: Start: 06-14-2020 Comprehensive metabo lic panel Ac Bennett Work Phone: Plan of Treatment Date Care Activity Detail Author Start: 03-23-2020 Influenza vaccination Flu vaccine (# 1) [place] End: 06-14-2020 COVID-19, PCR COVID-19, PCR Lab Routine One Time for 1 Occurrences starting 06/14/2020 until 06/14/2020 [place] Comment on above: One Time for 1 Occur rences starting 06/14/2020 until 06/14/2020 End: 06-14-2020 Urinalysis Reflex to Culture Urinalysis Reflex to Culture Lab Routine One Time for 1 Occurrences starting 06/14/2020 until 06/14/2020 [place] Comment on above: One Time for 1 Occur rences starting 06/14/2020 until 06/14/2020 Payers Date Payer Category Payer Unknown [id number] 2022 Unknown [id number] 1998 Unknown [id number] 2.16.8 [id number] 1998 Unknown [id number] 2.16.84 [id number] 1998 Unknown [id number] 2.16.84 [id number] 1998 Unknown [id number] 2.16. [id number] 1998 Unknown [id number] 2.16.8 [id number] 1998 Unknown [id number] 2.16.8 [id number] 1998 Unknown [id number] 2.16.8 [id number] 1998 Unknown [id number] 2.16.8 [id number] 1959 Medicaid [id number]. [id number] Social History Date Type Detail Facility Start: 06-14-[address] [facility] Current every day smoker [place] History of tobacco use Cigarette Smoker [place] Start: 06-14-2020 Cigarettes smoked current (pack per day) - Reported [place] Start: 06-14-2020 Tobacco use and exposure Never used [place] Sex Assigned At Not on file [place] Exposure to SARS-CoV -2 (event) Not sure [place] Discharge Instructions * Instructions* Kennedy Cool APRN - [facility] - 06/14/2020 Return to the emergency department for worsening symptoms. Follow-up with your primary care provider. * Attachments The following attachments cannot be sent through Care Everywhere. * Nausea and Vomiting (Turkmen) documented in this encounter Assessments Diagnosis Nausea and vomiting, intractability of vomiting not specified, unspecified vomiting type Advance Directives No Advanced Directives Records FoundDocuments on File Type Date Recorded Patient Process Consultant Expl anation ACP-Advance Directive ACP-Power of Utility Sales Representative Summary Purpose Family History No Family History Records FoundNo Family History Records FoundNo Family History Records FoundNo Family History Records Found Additional Source Comments Reason for Visit (unrecogniz ed section and content) Reason Comments Abdominal Pain pt states onset this am Emesis one time this am Headache (unrecognized sect ion and content) No Status Records FoundNo Status Records FoundNo Status Records FoundNo Status Records Found INFORMATION SOURCE (unrecogn ized section and content) DATE CREATED AUTHOR [facility]16/2020 [facility] DATE CREATED AUTHOR AUTHOR'S ORGANIZ ATION 05/16/2022 [facility] DATE CREATED AUTHOR AUTHOR'S ORGANIZ ATION 08/22/2022 [facility] DATE CREATED AUTHOR AUTHOR'S ORGANIZ ATION 05/26/2024 [facility] FOR RECORDS PERTAINING TO PATIENTS WHO ARE OR HAVE BEEN ENROLLED IN A CHEMICAL DEPENDENCY/SUBSTANCEABUSE PROGRAM, SOME INFORMATION MAY BE OMITTED. This clinical summary was aggregated from multiple sources. Caution should be exercised in using it in the provision of clinical care. This summary normalizes information from multiple sources, and as a consequence, information in this document may materially change the coding, format and clinical context of patient data. In addition, data may be omitted in some cases. CLINICAL DECISIONS SHOULD BE BASED ON THE PRIMARY CLINICAL RECORDS. [employer] provides no warranty or guarantee of the accuracy or completeness of information in this document.
[2024-05-28 00:26] LABS: Basophils Absolute Auto 0.1 10^3/uL (0.0-0.1); Basophils Percent Auto 0.6 % (0.2-2.0); Eosinophils Absolute Auto 0.1 10^3/uL (0.0-0.7); Eosinophils Percent Auto 0.7 % (0.9-7.0); Hematocrit 41.9 % (42.0-54.0); Hemoglobin 13.8 g/dL (14.0-18.0); Immature Granulocytes Abs Auto 0.01 10^3/uL (0.00-0.03); Immature Granulocytes Pct Auto 0.1 % (0.0-0.5); Lymphocytes Absolute Auto 2.5 10^3/uL (1.2-3.8); Lymphocytes Percent Auto 31.5 % (20.5-60.0); Mean Corpuscular HGB Conc 32.9 g/dL (29.9-35.2); Mean Corpuscular Hemoglobin 30.5 pg (25.9-34.0); Mean Corpuscular Volume 92.7 fL (80.0-94.0); Mean Platelet Volume 10.3 fL (9.5-13.5); Monocytes Absolute Auto 0.5 10^3/uL (0.3-0.8); Monocytes Percent Auto 5.8 % (1.7-12.0); Neutrophils Absolute Auto 4.9 10^3/uL (1.4-6.5); Neutrophils Percent Auto 61.3 % (43.0-75.0); Platelet Count 276 10^3/uL (150-450); Red Blood Count 4.52 10^6/uL (4.70-6.10); Red Cell Distribution Width 13.3 % (11.0-15.0)
[2024-05-28] MEDS: KETOROLAC TROMETHAMINE 30 MG/ML VIAL 15 MG IM (00:28)
[2024-05-28 00:46] LABS: Anion Gap 16.8; BUN Creatinine Ratio 11.3; Calcium 9.4 mg/dL (8.5-10.1); Carbon Dioxide 23.7 mmol/L (21.0-32.0); Chloride 105 mmol/L (98-107); Estimated GFR (African America >60 (>=60 mL/min/1.73m^2); Estimated GFR (Non-African Ame >60 (>=60 mL/min/1.73m^2); Glucose 83 mg/dL (74-106); Potassium 3.5 mmol/L (3.5-5.1); Sodium 142 mmol/L (136-145)
[2024-05-28 00:59] VITALS: BP 115/71; PULSE 52; TEMP 37; O2SAT 97
--- NOTE | 2024-05-28 01:06 | PC.NURSE ---
i gave this patient verbal and written discharge orders, and this patient voices understanding these discharge orders, at time of discharge this patient voices no concerns and shows no signs of distress
== END 2024-05-28 01:07 | disposition home or self-care (01) ==
PROVIDERS: Emergency Provider Emergency Medicine
DX: R07.89 Other chest pain (principal); F17.210 Nicotine dependence, cigarettes, uncomplicated
CPT/HCPCS: 36415; 80048; 84484; 85025; 93005; 96372; 99285; J1885